=== PATIENT | male | born 1985 | race Two or more races ===

== ENCOUNTER 2017-06-01 06:58 | Emergency (ER) | payer MEDICAID ==
[~2017-06-01] VITALS: Ht 167.6 cm; Wt 96.2 kg
[~2017-06-01 06:58] MED LIST: ENOX40DI11 SQ; OMEP-50 PO; ONDA4TAB12 PO; QUET-1 PO; SOFO1TAB PO; WALKERFR
[2017-06-01] MEDS ORDERED: HYDROcodone/acetaminophen 5mg/325mg tablet PO ONE (07:50)
[2017-06-01] MEDS ORDERED: LIDOcaine 5% patch TP ONE (07:50)
[2017-06-01 08:33] LABS: CLARITY,URINE CLEAR (Clear); COLOR,URINE YELLOW (Yellow); GLUCOSE, URINE NEGATIVE (Neg); KETONES,URINE NEGATIVE (Neg); LEUKOCYTE ESTERASE ,URINE NEGATIVE (Neg); NITRITES, URINE NEGATIVE (Neg); OCCULT BLOOD,URINE NEGATIVE (Neg); PH,URINE 5.5 (4.8-8.0); PROTEIN,URINE NEGATIVE (Neg); UROBILINOGEN,URINE 0.2 E.U/dL (0.2-1.0)
[2017-06-01 08:36] LABS: UA COLLECTION TYPE URINAL
[2017-06-01] MEDS ORDERED: HYDR-3965 PO (08:41)
[2017-06-01] MEDS ORDERED: CYCL-1 PO (08:41)
[2017-06-01 08:52] VITALS: BP 133/79
== END 2017-06-01 08:54 | disposition home or self-care (01) ==
LOC: ER 06:58
DX: M54.5 Low back pain (principal); G89.29 Other chronic pain; F17.200 Nicotine dependence, unspecified, uncomplicated; J45.909 Unspecified asthma, uncomplicated; F12.10 Cannabis abuse, uncomplicated; F15.10 Other stimulant abuse, uncomplicated; F14.10 Cocaine abuse, uncomplicated; F11.10 Opioid abuse, uncomplicated; Z56.0 Unemployment, unspecified; Z98.890 Other specified postprocedural states; Z79.899 Other long term (current) drug therapy
CPT/HCPCS: 81003; 99283

== ENCOUNTER 2017-06-07 17:50 | Emergency (ER) | payer MEDICAID ==
[~2017-06-07] VITALS: Ht 170.2 cm; Wt 88.6 kg
[~2017-06-07 17:50] MED LIST changes: +CYCL-1 PO; +HYDR-3965 PO
[2017-06-07 18:00] VITALS: BP 122/84
== END 2017-06-07 18:54 | disposition home or self-care (01) ==
LOC: ER 17:51
DX: S61.210A Laceration without foreign body of right index finger without damage to nail, initial encounter (principal); J44.9 Chronic obstructive pulmonary disease, unspecified; F12.10 Cannabis abuse, uncomplicated; F15.10 Other stimulant abuse, uncomplicated; F14.10 Cocaine abuse, uncomplicated; F11.10 Opioid abuse, uncomplicated; W26.0XXA Contact with knife, initial encounter; Y93.89 Activity, other specified; Y92.89 Other specified places as the place of occurrence of the external cause; Y99.8 Other external cause status
CPT/HCPCS: 29130; 99283

== ENCOUNTER 2017-08-17 04:34 | Emergency (ER) | payer MEDICAID ==
[~2017-08-17] VITALS: Ht 167.6 cm; Wt 91.8 kg
[~2017-08-17 04:34] MED LIST changes: -HYDR-3965 PO
[2017-08-17 04:39] VITALS: BP 149/96
== END 2017-08-17 05:39 | disposition home or self-care (01) ==
LOC: ER 04:34
DX: J34.0 Abscess, furuncle and carbuncle of nose (principal); J44.9 Chronic obstructive pulmonary disease, unspecified; F12.10 Cannabis abuse, uncomplicated; F15.10 Other stimulant abuse, uncomplicated; F19.10 Other psychoactive substance abuse, uncomplicated; F14.10 Cocaine abuse, uncomplicated
CPT/HCPCS: 99281

== ENCOUNTER 2017-09-07 09:12 | Emergency (ER) | payer MEDICAID ==
[~2017-09-07] VITALS: Ht 152.4 cm; Wt 89.3 kg
[2017-09-07] MEDS ORDERED: triamcinolone acetonide 40mg/ml inj IM ONE (09:40)
[2017-09-07] MEDS ORDERED: gabapentin 400mg capsule PO ONE (09:40)
[2017-09-07] MEDS ORDERED: gabapentin 300mg capsule PO ONE (09:45)
[2017-09-07 09:55] VITALS: BP 135/89
== END 2017-09-07 09:56 | disposition home or self-care (01) ==
LOC: ER 09:13
DX: M54.5 Low back pain (principal); J44.9 Chronic obstructive pulmonary disease, unspecified; F12.10 Cannabis abuse, uncomplicated; F15.10 Other stimulant abuse, uncomplicated; F11.10 Opioid abuse, uncomplicated; F14.10 Cocaine abuse, uncomplicated; Z56.0 Unemployment, unspecified; Z98.890 Other specified postprocedural states; Z79.899 Other long term (current) drug therapy
CPT/HCPCS: 96372; 99283; J3301

== ENCOUNTER 2020-10-25 13:15 | Emergency (ER) | payer MEDICAID | END 2020-10-25 14:57 | disposition left against medical advice (07) | LOC: ER 13:16 | DX: R10.9 Unspecified abdominal pain (principal); Z53.21 Procedure and treatment not carried out due to patient leaving prior to being seen by health care provider ==

== ENCOUNTER 2022-03-25 04:46 | Emergency (ER) | payer MEDICAID ==
[~2022-03-25] VITALS: Ht 167.6 cm; Wt 92.1 kg
[~2022-03-25 04:46] MED LIST changes: -OMEP-50 PO; +OMEP20CA16 PO
--- NOTE | 2022-03-25 08:52 | NUR ---
PT IS AO4 WITHOUT BEING ASKED OR PROMPTED PT STATED "I HAVE SUICIDAL IDEATION THE VOICES IN MY HEAD WANT ME TO KILL MYSELF BY WALKING IN FRONT OF A SEMI. I ALSO FELL IN THE SNOW AND MY BUTT HURTS AND I WANT THE PAIN TO STOP." PT STATED HE FEELS SAFE AND WILL CONTRACT FOR SAFETY. RESP EVEN UNLABORED. SKIN W/D/I PINK
[2022-03-25] MEDS ORDERED: ibuprofen 200mg tablet PO ONE (09:45)
[2022-03-25] MEDS ORDERED: mirtazapine 15mg tablet PO STA (09:56)
[2022-03-25 10:02] LABS: CLARITY,URINE CLEAR (Clear); COLOR,URINE YELLOW (Yellow); GLUCOSE, URINE NEGATIVE (Neg); KETONES,URINE 40 mg/dl (Neg); LEUKOCYTE ESTERASE ,URINE NEGATIVE (Neg); NITRITES, URINE NEGATIVE (Neg); OCCULT BLOOD,URINE MODERATE (Neg); PROTEIN,URINE 30 mg/dl (Neg)
[2022-03-25 10:10] LABS: UA COLLECTION TYPE NON-SPECIFIED
[2022-03-25] MEDS ORDERED: HYDROcodone/acetaminophen 5mg/325mg tablet PO ONE (10:30)
[2022-03-25 10:33] LABS: URINE AMPHETAMINE SCREEN NEGATIVE (Neg); URINE BARBITUATE SCREEN NEGATIVE (Neg); URINE BENZODIAZEPINES SCREEN NEGATIVE (Neg); URINE CANNABINOID SCREEN NEGATIVE (Neg); URINE COCAINE SCREEN NEGATIVE (Neg); URINE METHADONE SCREEN NEGATIVE (Neg); URINE OPIATE SCREEN NEGATIVE (Neg); URINE PHENCYCLIDINE SCREEN NEGATIVE (Neg)
[2022-03-25 10:44] LABS: WBC,URINE 0-4 /HPF (0-4)
[2022-03-25 10:48] LABS: HYALINE CASTS 0-3 /LPF (NEGATIVE)
[2022-03-25 10:49] LABS: BACTERIA,URINE FEW /HPF (Neg); SQUAMOUS EPITHELIAL CELL,UR FEW /LPF (FEW)
[2022-03-25 10:50] LABS: MUCUS STRANDS FEW /LPF (Neg)
[2022-03-25 11:03] LABS: BASOPHILS # (AUTO) 0.1 X10'3 (0-0.2); BASOPHILS % (AUTO) 0.6 % (0-1); EOSINOPHILS % (AUTO) 0.2 % (0-6); HEMATOCRIT 38.2 % (42.0-52.0); LYMPHOCYTES # (AUTO) 1.9 X10'3 (1.1-4.8); LYMPHOCYTES % (AUTO) 19.8 % (21-51); MEAN CORPUSCULAR HEMOGLOBIN 30.6 PG (27.0-31.0); MEAN CORPUSCULAR VOLUME 89.9 FL (78-98); MEAN PLATELET VOLUME 8.6 FL (7.4-10.4); MONOCYTES # (AUTO) 0.7 X10'3 (0-0.9); MONOCYTES % (AUTO) 6.8 % (2-12); NEUTROPHILS # (AUTO) 7.2 X10'3 (1.8-7.7); NEUTROPHILS % (AUTO) 72.6 % (42-75); PLATELET COUNT 187 X10'3 (140-440); RED BLOOD COUNT 4.25 X10'6 (4.70-6.10); RED CELL DISTRIBUTION WIDTH 13.8 % (11.5-14.5); WHITE BLOOD COUNT 9.8 X10'3 (4.5-11.0)
[2022-03-25] MEDS ORDERED: albuterol 2.5 MG/3 ML nebule NEB ONE (11:30)
[2022-03-25 11:32] LABS: ALANINE AMINOTRANSFERASE 204 U/L (12-78); ALBUMIN 2.9 G/DL (3.4-5.0); ALBUMIN/GLOBULIN RATIO 0.9 (1.1-1.5); ALKALINE PHOSPHATASE 48 IU/L (46-116); ASPARTATE AMINO TRANSFERASE 477 U/L (10-37); BILIRUBIN,TOTAL 0.9 MG/DL (0.1-1.0); BLOOD UREA NITROGEN 15 MG/DL (7-18); BUN/CREATININE RATIO 19.7 (5.4-32.0); CALCIUM 7.8 MG/DL (8.5-10.1); CREATININE 0.76 MG/DL (0.60-1.10); GLUCOSE 108 MG/DL (70-104); TOTAL CARBON DIOXIDE 21.5 MMOL/L (24-32); TOTAL PROTEIN 6.1 G/DL (6.4-8.2); eGFR > 90 ML/MIN
--- NOTE | 2022-03-25 11:32 | NUR ---
pt remains calm cooperative. pt changed into green scubs and all belongings placed in bags. pt medicated per pain order. pt ambulatory with steady gait
--- NOTE | 2022-03-25 12:10 | NUR ---
Assumed care of patient from CHRIS Saravia. Pt ambulated independently from main ED to OF bed #20. Pt is A&Ox4. Pt's gait is slightly impaired r/t a fx pelvis. Pt was given a warm blanket and lunch tray.
[2022-03-25] MEDS ORDERED: normal saline 1000ML IV soln IVB ONE (12:25)
[2022-03-25 13:20] LABS: SODIUM 138 MMOL/L (135-145)
[2022-03-25 13:23] LABS: ANION GAP 15 (8-16); CHLORIDE 102 MMOL/L (99-107)
--- NOTE | 2022-03-25 13:30 | NUR ---
Came back from lunch, received notice pt's K+ was 3.0. An order for 20meq's was placed. Administered with out issue. Pt remains calm.
[2022-03-25] MEDS ORDERED: POTASSIUM BICARB 20meq eff tab 20 MEQ TABLET.EFF PO STA (13:41)
--- NOTE | 2022-03-25 14:20 | NUR ---
PACKET FAXED TO [facility].
--- NOTE | 2022-03-25 14:25 | NUR ---
Patient was lying on bed when writer technical publications approached. Pt states he came in because his "butt hurt." Pt reports he fell in the snow "helping a lady." Pt reports passive suicidal thoughts, pt is guarded during conversation. Pt states he "takes care of his mother and is having "some difficulties." Pt reports he has been dx with "bipolar, schizophrenia, ADHD." Pt states his "butt is fractured."
--- NOTE | 2022-03-25 16:32 | NUR ---
Sister Marlyn called to check in on pt., her phone number is [phone].
--- NOTE | 2022-03-25 16:52 | NUR ---
Pt lying in bed on his right side. Pt was asking about pain mediation that isn't due yet. Pt declined Tylenol or Motrin.
[2022-03-25] MEDS: HYDROcodone/acetaminophen 5mg/325mg tablet PO PRN (17:09)
--- NOTE | 2022-03-25 17:30 | NUR ---
Note caroline in EDM - 03/25/22 at 1835 by DEEJAY Patient's blood pressure was 225/102 automatic cuff and 220/100 manual. Rima Khan notified ordered PO Lopressor 50 mg. Pt refused medication from auto service writer even after risks and benefits were explained. Will endorse to awake overnight counselor.
--- NOTE | 2022-03-25 19:07 | NUR ---
One to one with the patient who reports that he is here because he is suicidal. He reports command auditory hallucinations telling him to kill himself. He reports he has not been sleeping well. He described his mood as "low. I'm in so much pain" Reports his pain is 10/10 despite receiving pain meds. He reports he is homeless and added, "I have no where to go"
--- NOTE | 2022-03-25 19:09 | NUR ---
Raman COLEMAN made aware of pain level complaint and orders received.
[2022-03-25] MEDS: ibuprofen 200mg tablet PO PRN (19:26)
--- NOTE | 2022-03-25 20:29 | NUR ---
Discussed Remeron dosing for the patient with Erin COLEMAN and orders received.
[2022-03-25] MEDS: mirtazapine 15mg tablet PO SCH (20:34)
[2022-03-25] MEDS ORDERED: NO HOME MEDS (20:46)
--- NOTE | 2022-03-25 21:33 | NUR ---
The patient ambulated to the bathroom and is now back in bed.
--- NOTE | 2022-03-25 23:38 | NUR ---
The patient appears to be sleeping
[2022-03-26] MEDS: HYDROcodone/acetaminophen 5mg/325mg tablet PO PRN ×3 (01:21→17:06)
[2022-03-26] MEDS: ibuprofen 200mg tablet PO PRN ×2 (01:21→20:04)
--- NOTE | 2022-03-26 01:24 | NUR ---
The patient is awake. Reports pain 8/10 and medications given.
--- NOTE | 2022-03-26 03:09 | NUR ---
The patient is sleeping off and on. He is polite when awake
--- NOTE | 2022-03-26 05:12 | NUR ---
The patient appears to be sleeping but over all slept poorly
--- NOTE | 2022-03-26 07:00 | NUR ---
Pt appears to be sleeping comfortably on right side, respirations even and unlabored. No restless movements.
--- NOTE | 2022-03-26 09:00 | NUR ---
One on one with patient to assess suicidal ideation. Pt was sleeping and had to be woken up. Pt c/o pain 6/10 in his buttocks. Pt ambulates with a mild limp to bathroom, but appears to over exaggerate steps. Pt ate 100% of his breakfast. Pt presents with a restricted affect. Pt continues to endorse suicidal thoughts without a plan. Pt denies AH. Pt is guarded and responds to questions with short answers. When asked about recent stressors, pt replied "I have alot," but wouldn't elaborate. Pt denied having diarrhea, but clearly heard through bathroom door pt is having loose stool. Will endorse to provider.
--- NOTE | 2022-03-26 10:25 | NUR ---
Administered [place] 5/325mg for buttocks pain 09/20.
--- NOTE | 2022-03-26 11:06 | NUR ---
Pt lying on left side, respirations even and unlabored. No restless movements. PRN effective.
--- NOTE | 2022-03-26 14:00 | NUR ---
Pt continues to rest comfortably in bed. No behaviors to report. Pt calm/cooperative.
--- NOTE | 2022-03-26 19:00 | NUR ---
One to one with the patient who continues to endorse feeling depressed and suicidal. He is superficially pleasant but can be irritable at times. He denies voices. He reports he was discharged from detention on the 6th of this month. He denies any source of income or support in the area.
[2022-03-26] MEDS: mirtazapine 15mg tablet PO SCH (20:04)
--- NOTE | 2022-03-26 20:11 | NUR ---
The patient is resting on his bed. He is asking when his norco was due. Motrin given.
[2022-03-26] MEDS ORDERED: mirtazapine 15mg tablet PO SCH (21:00)
--- NOTE | 2022-03-26 21:58 | NUR ---
The patient appears to be sleeping
--- NOTE | 2022-03-27 00:03 | NUR ---
The patient appears to be sleeping
[2022-03-27] MEDS: HYDROcodone/acetaminophen 5mg/325mg tablet PO PRN ×4 (00:44→22:18)
--- NOTE | 2022-03-27 02:03 | NUR ---
The patient was awake briefly to ask for [employer] and now appears to be back asleep
--- NOTE | 2022-03-27 04:05 | NUR ---
The patient appears to be sleeping.
--- NOTE | 2022-03-27 05:42 | NUR ---
The patient appeared to have slept well during the night.
[2022-03-27] MEDS: ibuprofen 200mg tablet PO PRN ×3 (06:00→21:37)
--- NOTE | 2022-03-27 06:38 | NUR ---
PT SLEEPING IN LFT LATERAL POSITION AT THIS TIME,WILL CONT TO MONITOR.
--- NOTE | 2022-03-27 08:30 | NUR ---
pt is eating his breakfast at talia time.
--- NOTE | 2022-03-27 09:21 | NUR ---
pt c/o pain in lower back and buttocks 01/20 ,norco prn admin at this time.will re eval the pt .
--- NOTE | 2022-03-27 10:05 | NUR ---
Sreedhar velazquez in [facility] - 03/27/22 at 1133 by AIDAN LE BELLO AT BEDSIDE.
--- NOTE | 2022-03-27 10:55 | NUR ---
pt sleeping at this time RR wnl ,will cont to monitor.
--- NOTE | 2022-03-27 12:30 | NUR ---
SPOKE TO DC AT [facility] FOR MH PLACEMENT ,GIVEN NURSE TO NURSE REPORT.
--- NOTE | 2022-03-27 14:14 | NUR ---
pt resting in bed quietly .No distress noted ,will cont to monitor.
--- NOTE | 2022-03-27 14:35 | NUR ---
Spoke to Lay from [facility] ,pt is accepted to the facility ,only thing pending is negative covid result within last 24 hr.fax result at [phone],after faxing the results call primary RN to give nurse to nurse report at [phone].
--- NOTE | 2022-03-27 14:41 | NUR ---
UP TO USE RESTROOM AT THIS TIME.
--- NOTE | 2022-03-27 17:10 | NUR ---
PT SLEEPING AT THIS TIME .RR WNL.
--- NOTE | 2022-03-27 17:21 | NUR ---
RECEVIED CALL FROM [facility] OFFICE ,PT ACCEPTED TO [facility] AT [address] ,PT WILL BE TRANSPORTED TOMM MORNING ,GIVE NURSE TO NURSE REPPORT IN AM AT [phone].
[2022-03-27] MEDS: mirtazapine 15mg tablet PO SCH (19:53)
--- NOTE | 2022-03-27 22:20 | NUR ---
PT BEEN WAITING FOR NORCO FOR HOURS ,ADMIN THE NORCO PER MD'S ORDERS,WILL REASSESS THE PAIN .
--- NOTE | 2022-03-27 23:16 | NUR ---
PT RESTING IN BED QUIETLY ,NO DISTRESS NOTED ,WILL CONT TO MONITOR.
--- NOTE | 2022-03-28 01:10 | NUR ---
PT SLEEPING AT THIS TIME .RR WNL.WILL CONT TO MONITOR.
--- NOTE | 2022-03-28 02:26 | NUR ---
SLEEPING QUIETLY,NO DISTRESS NOTED,WILL CONT TO MONITOR.
--- NOTE | 2022-03-28 02:47 | NUR ---
BREAKING PRIMARY RN, PT IS LAYING ON HIS LEFT SIDE, SLEEPING, REGULAR BREATHING PRESENT, NO NEEDS AT THIS TIME
--- NOTE | 2022-03-28 03:46 | NUR ---
SLEEPING ON HIS RGT SIDE ,RR WNL.
[2022-03-28] MEDS: ibuprofen 200mg tablet PO PRN (05:43)
--- NOTE | 2022-03-28 05:45 | NUR ---
PT C/O PAIN PRN MOTRIN ADMINISTERED .
[2022-03-28 05:47] VITALS: BP 94/50
[2022-03-28] MEDS: HYDROcodone/acetaminophen 5mg/325mg tablet PO PRN (07:17)
== END 2022-03-28 11:25 ==
LOC: ER 04:47
DX: R45.851 Suicidal ideations (principal); Z20.822 Contact with and (suspected) exposure to COVID-19
CPT/HCPCS: 36415; 71045; 72170; 72220; 80053; 80305; 81001; 84443; 85025; 87811; 94640; 94760; 99285

== ENCOUNTER 2022-04-03 23:21 | Emergency (ER) | payer MEDICAID ==
[~2022-04-03] VITALS: Ht 167.6 cm; Wt 81.8 kg
[~2022-04-03 23:21] MED LIST changes: -CYCL-1 PO; -ENOX40DI11 SQ; +NO HOME MEDS; -OMEP20CA16 PO; -ONDA4TAB12 PO; -QUET-1 PO; -SOFO1TAB PO; -WALKERFR
[2022-04-04 00:33] LABS: CLARITY,URINE CLEAR (Clear); COLOR,URINE YELLOW (Yellow); GLUCOSE, URINE NEGATIVE (Neg); KETONES,URINE NEGATIVE (Neg); LEUKOCYTE ESTERASE ,URINE NEGATIVE (Neg); NITRITES, URINE NEGATIVE (Neg); OCCULT BLOOD,URINE NEGATIVE (Neg); PH,URINE 5.5 (4.8-8.0); PROTEIN,URINE NEGATIVE (Neg); UROBILINOGEN,URINE 0.2 E.U/dL (0.2-1.0)
[2022-04-04 00:38] LABS: BASOPHILS % (AUTO) 0.3 % (0-1); EOSINOPHILS # (AUTO) 0.1 X10'3 (0-0.9); EOSINOPHILS % (AUTO) 1.2 % (0-6); HEMATOCRIT 42.3 % (42.0-52.0); HEMOGLOBIN 14.7 g/dl (14.0-17.9); LYMPHOCYTES # (AUTO) 1.9 X10'3 (1.1-4.8); LYMPHOCYTES % (AUTO) 20.8 % (21-51); MEAN CORPUSCULAR HEMOGLOBIN 31.3 PG (27.0-31.0); MEAN CORPUSCULAR HGB CONC 34.8 g/dL (33.0-36.5); MEAN PLATELET VOLUME 8.7 FL (7.4-10.4); MONOCYTES # (AUTO) 1.1 X10'3 (0-0.9); NEUTROPHILS % (AUTO) 65.7 % (42-75); PLATELET COUNT 219 X10'3 (140-440); RED CELL DISTRIBUTION WIDTH 14.4 % (11.5-14.5); WHITE BLOOD COUNT 9.1 X10'3 (4.5-11.0)
[2022-04-04 00:40] LABS: UA COLLECTION TYPE VOIDED
[2022-04-04 00:42] LABS: URINE AMPHETAMINE SCREEN NEGATIVE (Neg); URINE BARBITUATE SCREEN NEGATIVE (Neg); URINE BENZODIAZEPINES SCREEN NEGATIVE (Neg); URINE CANNABINOID SCREEN POSITIVE (Neg); URINE COCAINE SCREEN NEGATIVE (Neg); URINE METHADONE SCREEN NEGATIVE (Neg); URINE OPIATE SCREEN POSITIVE (Neg); URINE PHENCYCLIDINE SCREEN NEGATIVE (Neg)
[2022-04-04 00:48] LABS: ALANINE AMINOTRANSFERASE 127 U/L (12-78); ALBUMIN 4.2 G/DL (3.4-5.0); ALBUMIN/GLOBULIN RATIO 1.1 (1.1-1.5); ALKALINE PHOSPHATASE 60 IU/L (46-116); ANION GAP 13 (8-16); ASPARTATE AMINO TRANSFERASE 61 U/L (10-37); BILIRUBIN,TOTAL 0.3 MG/DL (0.1-1.0); BLOOD UREA NITROGEN 17 MG/DL (7-18); BUN/CREATININE RATIO 15.2 (5.4-32.0); CHLORIDE 101 MMOL/L (99-107); CREATININE 1.12 MG/DL (0.60-1.10); ETHANOL < 0.010 GM/DL (0.0-0.010); GLUCOSE 110 MG/DL (70-104); POTASSIUM 3.8 MMOL/L (3.5-5.1); SODIUM 140 MMOL/L (135-145); TOTAL CARBON DIOXIDE 26.1 MMOL/L (24-32); TOTAL PROTEIN 7.9 G/DL (6.4-8.2); eGFR 73 ML/MIN
--- NOTE | 2022-04-04 02:27 | NUR ---
Patient received from main ED. Patient is cooperative. Patient reports active plan to harm self by hanging. Patient reports psych hx: schizophrenia, bipolar, major depressive, ADHD, paranoid, depression. Patient has HX of suicide attempts, O/D, cutting. Patient would like to get better so he can move to [place], [place] by April 14 with 2month and 1yr old daughters and girlfriend.
--- NOTE | 2022-04-04 04:26 | NUR ---
Patient appears to be sleeping at this time.
--- NOTE | 2022-04-04 05:45 | NUR ---
packet sent to [facility]
--- NOTE | 2022-04-04 06:50 | NUR ---
Patient sleeping in bed, respirations are unlabored.
--- NOTE | 2022-04-04 09:04 | NUR ---
Patient ate his breakfast, up to the bathroom, then back to bed.
--- NOTE | 2022-04-04 10:27 | NUR ---
patient on side lying position,awake.We will monitor.
--- NOTE | 2022-04-04 11:44 | NUR ---
Patient evaluated by [facility]. Patient will be placed on 5150.
--- NOTE | 2022-04-04 12:19 | NUR ---
Patient ate lunch and now in restroom.
[2022-04-04] MEDS ORDERED: FLUO20CA39 PO (12:31)
[2022-04-04] MEDS ORDERED: QUET-1 PO (12:31)
[2022-04-04] MEDS ORDERED: LORazepam 1 MG tablet PO PRN (13:00)
--- NOTE | 2022-04-04 14:32 | NUR ---
Patient was given Ativan 1 mg p.o. and is now resting comfortably in bed.
--- NOTE | 2022-04-04 16:55 | NUR ---
[facility] and [facility] patient will be going to [facility] at approximately 20:00.
--- NOTE | 2022-04-04 18:30 | NUR ---
Patient is sleeping quietly, in bed, in direct view from nurses station
--- NOTE | 2022-04-04 19:10 | NUR ---
Patient is up to bathroom to void. No distress. He has eaten a full dinner. Patient will transfer to [facility] sometime after 2000 hours. Patient endorses S/I, he denies H/I. Patient has a plan of hanging self. Patient ambulates with a normal gait. He speaks with a regular rhythm, his voice is quiet. Patient is cooperative and presents as linear.
--- NOTE | 2022-04-04 20:48 | NUR ---
Patient was to be transfered to [facility] in [place]. The transfer is now cancelled until am around [id number]. No local intermodal truck driver is available tonight.
[2022-04-04] MEDS ORDERED: quetiapine 100mg tablet PO SCH (21:00)
--- NOTE | 2022-04-04 22:01 | NUR ---
Patient is sleeping quietly, no distress.
--- NOTE | 2022-04-04 23:00 | NUR ---
Patient noted asleep, resting on left side. Appears to be comfortable. No distress noted.
--- NOTE | 2022-04-05 | NUR ---
Patient resting with eyes closed, resting on back. No distress noted.
--- NOTE | 2022-04-05 00:57 | NUR ---
Patient continues to sleep, no changes.
--- NOTE | 2022-04-05 02:30 | NUR ---
No changes noted, patient sleeping comfortably. Resting on left side. Able to make needs known. Within line of site from nurses station.
--- NOTE | 2022-04-05 04:00 | NUR ---
Noted patient up to BR appearing as if he's "walking on egg shells". Made nurse aware of this during physical assessment. Will pass on in report to dayshift. Layed back down and went to sleep again quickly. Appears comfortable and without distress.
--- NOTE | 2022-04-05 05:28 | NUR ---
Patient resting well on right side, has slept most of night. Awoke to use BR once. No needs noted. Appears to be comfortable. No distress noted.
[2022-04-05 05:45] VITALS: BP 96/58
[2022-04-05] MEDS ORDERED: FLUoxetine 20mg capsule PO SCH (08:00)
--- NOTE | 2022-04-05 10:25 | NUR ---
pt clothes given to pt to change into, the rest of the pt's belongings were given to the company truck driver. No belongings were locked in the safe.
== END 2022-04-05 10:28 ==
LOC: ER 23:21
DX: R45.851 Suicidal ideations (principal); Z20.822 Contact with and (suspected) exposure to COVID-19; J44.9 Chronic obstructive pulmonary disease, unspecified; F31.9 Bipolar disorder, unspecified; F20.9 Schizophrenia, unspecified; F12.90 Cannabis use, unspecified, uncomplicated; F15.90 Other stimulant use, unspecified, uncomplicated; F14.90 Cocaine use, unspecified, uncomplicated; F11.90 Opioid use, unspecified, uncomplicated; Z98.890 Other specified postprocedural states; Z72.89 Other problems related to lifestyle; Z56.0 Unemployment, unspecified; Z79.899 Other long term (current) drug therapy
CPT/HCPCS: 36415; 80053; 80305; 80320; 81003; 85025; 87811; 99285

== ENCOUNTER 2022-04-19 06:47 | Emergency (ER) | payer MEDICAID ==
[~2022-04-19] VITALS: Ht 167.6 cm; Wt 88.6 kg
[~2022-04-19 06:47] MED LIST changes: +FLUO20CA39 PO; +QUET-1 PO
[2022-04-19 07:35] VITALS: BP 108/72
[2022-04-19] MEDS ORDERED: ARIP20TA21 PO (09:26)
[2022-04-19] MEDS ORDERED: HYDR50CA5 PO (09:26)
[2022-04-19] MEDS ORDERED: PROP10TA10 PO (09:26)
[2022-04-19] MEDS ORDERED: GUAN1TAB PO (09:26)
[2022-04-19 09:56] LABS: CLARITY,URINE CLEAR (Clear); COLOR,URINE YELLOW (Yellow); GLUCOSE, URINE NEGATIVE (Neg); KETONES,URINE NEGATIVE (Neg); LEUKOCYTE ESTERASE ,URINE NEGATIVE (Neg); NITRITES, URINE NEGATIVE (Neg); OCCULT BLOOD,URINE NEGATIVE (Neg); PH,URINE 5.5 (4.8-8.0); PROTEIN,URINE NEGATIVE (Neg); UROBILINOGEN,URINE 0.2 E.U/dL (0.2-1.0)
[2022-04-19 10:00] LABS: BASOPHILS % (AUTO) 0.3 % (0-1); EOSINOPHILS # (AUTO) 0.4 X10'3 (0-0.9); EOSINOPHILS % (AUTO) 3.9 % (0-6); HEMATOCRIT 43.5 % (42.0-52.0); HEMOGLOBIN 14.6 g/dl (14.0-17.9); LYMPHOCYTES # (AUTO) 1.6 X10'3 (1.1-4.8); LYMPHOCYTES % (AUTO) 17.8 % (21-51); MEAN CORPUSCULAR HEMOGLOBIN 30.2 PG (27.0-31.0); MEAN CORPUSCULAR HGB CONC 33.5 g/dL (33.0-36.5); MEAN CORPUSCULAR VOLUME 90.2 FL (78-98); MEAN PLATELET VOLUME 8.6 FL (7.4-10.4); MONOCYTES # (AUTO) 0.8 X10'3 (0-0.9); MONOCYTES % (AUTO) 9.2 % (2-12); NEUTROPHILS # (AUTO) 6.1 X10'3 (1.8-7.7); NEUTROPHILS % (AUTO) 68.8 % (42-75); PLATELET COUNT 234 X10'3 (140-440); RED BLOOD COUNT 4.82 X10'6 (4.70-6.10); WHITE BLOOD COUNT 8.9 X10'3 (4.5-11.0)
[2022-04-19 10:05] LABS: UA COLLECTION TYPE CLN CATCH MIDSTREAM
[2022-04-19] MEDS ORDERED: hydrOXYzine 25 MG tablet PO PRN (10:05)
[2022-04-19 10:08] LABS: URINE AMPHETAMINE SCREEN NEGATIVE (Neg); URINE BARBITUATE SCREEN NEGATIVE (Neg); URINE BENZODIAZEPINES SCREEN NEGATIVE (Neg); URINE CANNABINOID SCREEN POSITIVE (Neg); URINE COCAINE SCREEN NEGATIVE (Neg); URINE METHADONE SCREEN NEGATIVE (Neg); URINE OPIATE SCREEN NEGATIVE (Neg); URINE PHENCYCLIDINE SCREEN NEGATIVE (Neg)
[2022-04-19 10:20] LABS: ALANINE AMINOTRANSFERASE 111 U/L (12-78); ALBUMIN 4.2 G/DL (3.4-5.0); ALBUMIN/GLOBULIN RATIO 1.3 (1.1-1.5); ALKALINE PHOSPHATASE 72 IU/L (46-116); ANION GAP 10 (8-16); ASPARTATE AMINO TRANSFERASE 51 U/L (10-37); BILIRUBIN,TOTAL 0.9 MG/DL (0.1-1.0); BLOOD UREA NITROGEN 14 MG/DL (7-18); BUN/CREATININE RATIO 13.2 (5.4-32.0); CALCIUM 9.5 MG/DL (8.5-10.1); CHLORIDE 103 MMOL/L (99-107); CREATININE 1.06 MG/DL (0.60-1.10); GLUCOSE 103 MG/DL (70-104); POTASSIUM 3.9 MMOL/L (3.5-5.1); SODIUM 139 MMOL/L (135-145); TOTAL CARBON DIOXIDE 26.3 MMOL/L (24-32); TOTAL PROTEIN 7.4 G/DL (6.4-8.2); eGFR 78 ML/MIN
[2022-04-19] MEDS ORDERED: propranolol 10mg tablet PO SCH (13:00)
--- NOTE | 2022-04-19 15:28 | NUR ---
PACKET FAXED TO [facility]
--- NOTE | 2022-04-19 18:25 | NUR ---
CALLED [facility]. PT IS ACCEPTED. INSTRUCTIONS ARE FOLLOWS: HAVE THE CAB DROP THE PT OFF AT THE BLUE DOORS. SIGN IN STARTS AT 1900. WILL RELAY THIS TO THE PT. Addendum: 04/19/22 at 1827 by ADUVAL CALLED [facility], AND SPOKE WITH COOPER MATIAS AT 182. PT IS ACCEPTED. INSTRUCTIONS ARE FOLLOWS: HAVE THE CAB DROP THE PT OFF AT THE BLUE DOORS. SIGN IN STARTS AT 1900. WILL RELAY THIS TO THE PT.
[2022-04-19] MEDS ORDERED: guanFACINE 1 mg tablet PO SCH (20:00)
[2022-04-20] MEDS ORDERED: ARIPIPRAZOLE 10 MG TABLET PO SCH (08:00)
== END 2022-04-19 11:41 ==
LOC: ER 06:47
DX: R45.851 Suicidal ideations (principal); Z20.822 Contact with and (suspected) exposure to COVID-19; J44.9 Chronic obstructive pulmonary disease, unspecified; F31.9 Bipolar disorder, unspecified; F20.9 Schizophrenia, unspecified; F12.10 Cannabis abuse, uncomplicated; F15.10 Other stimulant abuse, uncomplicated; Z56.0 Unemployment, unspecified
CPT/HCPCS: 36415; 80053; 80305; 81003; 84443; 85025; 87811; 99285

== ENCOUNTER 2022-04-20 07:14 | Emergency (ER) | payer MEDICAID ==
[~2022-04-20] VITALS: Ht 167.6 cm; Wt 88.0 kg
[~2022-04-20 07:14] MED LIST changes: +ARIP20TA21 PO; +GUAN1TAB PO; +HYDR50CA5 PO; +PROP10TA10 PO
[2022-04-20 07:17] VITALS: BP 116/79
== END 2022-04-20 10:28 | disposition left against medical advice (07) ==
LOC: ER 07:14
DX: Z53.21 Procedure and treatment not carried out due to patient leaving prior to being seen by health care provider (principal); F29 Unspecified psychosis not due to a substance or known physiological condition

== ENCOUNTER 2022-04-20 13:37 | Emergency (ER) | payer MEDICAID ==
[~2022-04-20] VITALS: Ht 167.6 cm; Wt 85.0 kg
[2022-04-20 13:46] VITALS: BP 114/78
--- NOTE | 2022-04-20 13:51 | NUR ---
PT IS CURRENTLY STAYING [facility], HE STATES ALL HIS MED ARE THERE
== END 2022-04-20 20:09 | disposition left against medical advice (07) ==
LOC: ER 13:37
DX: F29 Unspecified psychosis not due to a substance or known physiological condition (principal); Z53.21 Procedure and treatment not carried out due to patient leaving prior to being seen by health care provider

== ENCOUNTER 2022-04-25 10:06 | Emergency (ER) | payer MEDICAID ==
[~2022-04-25] VITALS: Ht 167.6 cm; Wt 85.0 kg
[~2022-04-25 10:06] MED LIST changes: -FLUO20CA39 PO; -NO HOME MEDS; -QUET-1 PO
[2022-04-25 10:16] VITALS: BP 134/73
[2022-04-25] MEDS ORDERED: ibuprofen tablet 400 MG TABLET PO ONE (10:55)
[2022-04-25] MEDS ORDERED: gabapentin 100mg capsule PO ONE (10:55)
[2022-04-25] MEDS ORDERED: IBUP-1986 PO (11:46)
[2022-04-25] MEDS ORDERED: GABA-530 PO (11:46)
[2022-04-27] MEDS ORDERED: GUAI600T45 PO (11:15)
[2022-04-27] MEDS ORDERED: ALBU8HFA PO (11:15)
== END 2022-04-25 11:57 | disposition home or self-care (01) ==
LOC: ER 10:07
DX: R20.2 Paresthesia of skin (principal); J44.9 Chronic obstructive pulmonary disease, unspecified; F31.9 Bipolar disorder, unspecified; F20.9 Schizophrenia, unspecified; F12.10 Cannabis abuse, uncomplicated; F15.10 Other stimulant abuse, uncomplicated; Z56.0 Unemployment, unspecified; Z79.899 Other long term (current) drug therapy; W19.XXXA Unspecified fall, initial encounter; Y93.89 Activity, other specified; Y92.89 Other specified places as the place of occurrence of the external cause; Y99.8 Other external cause status
CPT/HCPCS: 72131; 99284

== ENCOUNTER 2023-02-01 16:32 | Inpatient (IN) | payer MEDICAID ==
[~2023-02-01] VITALS: Ht 167.6 cm; Wt 81.8 kg
[~2023-02-01 16:32] MED LIST changes: +GABA-530 PO; +GUAI600T45 PO; +IBUP-1986 PO
[2023-02-01 17:38] LABS: BASOPHILS % (AUTO) 0.2 % (0-1); EOSINOPHILS # (AUTO) 0.3 X10'3 (0-0.9); EOSINOPHILS % (AUTO) 2.8 % (0-6); HEMATOCRIT 49.8 % (42.0-52.0); HEMOGLOBIN 17.3 g/dl (14.0-17.9); LYMPHOCYTES # (AUTO) 2.7 X10'3 (1.1-4.8); LYMPHOCYTES % (AUTO) 24.5 % (21-51); MEAN CORPUSCULAR HEMOGLOBIN 32.4 PG (27.0-31.0); MEAN CORPUSCULAR HGB CONC 34.8 g/dL (33.0-36.5); MEAN CORPUSCULAR VOLUME 93.1 FL (78-98); MEAN PLATELET VOLUME 9.8 FL (7.4-10.4); MONOCYTES # (AUTO) 0.7 X10'3 (0-0.9); MONOCYTES % (AUTO) 6.2 % (2-12); NEUTROPHILS # (AUTO) 7.5 X10'3 (1.8-7.7); NEUTROPHILS % (AUTO) 66.3 % (42-75); PLATELET COUNT 272 X10'3 (140-440); RED BLOOD COUNT 5.34 X10'6 (4.70-6.10); RED CELL DISTRIBUTION WIDTH 14.7 % (11.5-14.5); WHITE BLOOD COUNT 11.2 X10'3 (4.5-11.0)
[2023-02-01 17:38] LABS: BILIRUBIN,URINE NEGATIVE (Neg); CLARITY,URINE CLEAR (Clear); COLOR,URINE STRAW (Yellow); GLUCOSE, URINE NEGATIVE (Neg); KETONES,URINE NEGATIVE (Neg); LEUKOCYTE ESTERASE ,URINE NEGATIVE (Neg); NITRITES, URINE NEGATIVE (Neg); OCCULT BLOOD,URINE NEGATIVE (Neg); PH,URINE 6.5 (4.8-8.0); PROTEIN,URINE NEGATIVE (Neg); UROBILINOGEN,URINE 0.2 E.U/dL (0.2-1.0)
[2023-02-01 17:39] LABS: UA COLLECTION TYPE CLN CATCH MIDSTREAM
[2023-02-01 17:50] LABS: ALANINE AMINOTRANSFERASE 154 U/L (12-78); ALBUMIN 4.2 G/DL (3.4-5.0); ALKALINE PHOSPHATASE 122 IU/L (46-116); ANION GAP 13 (8-16); ASPARTATE AMINO TRANSFERASE 87 U/L (10-37); BILIRUBIN,TOTAL 1.4 MG/DL (0.1-1.0); BLOOD UREA NITROGEN 5 MG/DL (7-18); BUN/CREATININE RATIO 5.1 (10.0-20.0); CALCIUM 9.4 MG/DL (8.5-10.1); CHLORIDE 95 MMOL/L (99-107); CREATININE 0.98 MG/DL (0.60-1.10); GLUCOSE 101 MG/DL (70-104); SODIUM 138 MMOL/L (135-145); TOTAL CARBON DIOXIDE 30.1 MMOL/L (24-32); TOTAL PROTEIN 8.3 G/DL (6.4-8.2); eCRCL 90 ML/MIN; eGFR 85 ML/MIN
[2023-02-01 17:52] LABS: LIPASE 40 U/L (16-77)
[2023-02-01 17:59] LABS: POTASSIUM 2.2 MMOL/L (3.5-5.1)
[2023-02-01] MEDS ORDERED: normal saline 1000ml 1,000 ML IV ONE (19:15)
[2023-02-01] MEDS ORDERED: Potassium Cl inj 40 MEQ in normal saline 250ml IV soln 250 ML IV ONE (19:15)
[2023-02-01] MEDS ORDERED: morphine 4 MG/ML inj SYRINge IV ONE ×3 (19:15→21:40)
[2023-02-01] MEDS ORDERED: ondansetron/PF 4mg/2ml inj IV ONE ×3 (19:15→21:40)
[2023-02-01] MEDS ORDERED: piperacillin/tazo 4.5gm/100ml 100 ML IV ONE (19:16)
[2023-02-01] MEDS ORDERED: Potassium Cl 40 MEQ in sodium chloride 0.45% 500 ML IV ONE (19:20)
[2023-02-01] MEDS: POTASSIUM BICARB 20meq eff tab 20 MEQ TABLET.EFF PO SCH (19:27)
[2023-02-01 19:28] LABS: PRO BRAIN NATRIURETIC PEPTIDE < 30 PG/ML (0-125)
[2023-02-01] MEDS ORDERED: temazepam 15mg capsule PO PRN (21:00)
[2023-02-01] MEDS ORDERED: SERT-434 PO (22:03)
[2023-02-01] MEDS ORDERED: QUET400T54 PO (22:03)
[2023-02-01] MEDS ORDERED: potassium Cl 20 mEq SR tablet PO PRN ×2 (22:10)
[2023-02-01] MEDS ORDERED: HYDROmorphone inj. 0.5 MG/0.5 ML DISP.SYRIN IV PRN (22:10)
[2023-02-01] MEDS ORDERED: mag hydrox/Alum hydrox/simeth 30ml oral suspension PO PRN (22:10)
[2023-02-01] MEDS ORDERED: potassium Cl 40MEQ/1/2NS 520ml 520 ML IV PRN (22:10)
[2023-02-01] MEDS: potassium Cl 20mEq in NS 1,000 ML IV SCH (22:10)
[2023-02-01] MEDS ORDERED: ondansetron 4mg rapidly disintigrating tab PO PRN (22:10)
[2023-02-01] MEDS ORDERED: acetaminophen 650mg rectal suppository RC PRN (22:10)
[2023-02-01] MEDS ORDERED: bisacodyl 10mg suppository rectal RC PRN (22:10)
[2023-02-01] MEDS ORDERED: HYDROcodone/acetaminophen 5mg/325mg tablet PO PRN (22:10)
[2023-02-01] MEDS ORDERED: metoclopramide 5 mg/ml inj IV PRN (22:10)
[2023-02-01] MEDS ORDERED: acetaminophen 325mg tablet PO PRN ×2 (22:10)
[2023-02-01] MEDS ORDERED: diphenhydrAMINE 25mg capsule PO PRN (22:10)
[2023-02-01] MEDS ORDERED: morphine 2 MG/ML inj. syringe IV PRN (22:10)
[2023-02-01] MEDS ORDERED: magnesium hydroxide 30ml (MOM) UD suspension PO PRN (22:10)
[2023-02-01] MEDS ORDERED: diphenhydrAMINE 50 mg/ml inj IV PRN (22:10)
[2023-02-01] MEDS ORDERED: magnesium citrate 296ml oral solution PO ONE (22:15)
[2023-02-01] MEDS ORDERED: lactulose 20gm/30ml cup PO PRN (22:15)
[2023-02-01 22:39] LABS: MAGNESIUM 2.2 MG/DL (1.5-2.4)
[2023-02-01] MEDS: ipratropium/albuterol 3ml nebule NEB PRN (22:39)
[2023-02-01 22:40] VITALS: PULSE 104; RESP 18; O2SAT 96
[2023-02-01 22:43] LABS: HEMOGLOBIN A1C 5.7 % (4.5-6.2)
[2023-02-01 22:47] VITALS: PULSE 100; RESP 18
[2023-02-01 23:13] LABS: APTT 26 SECONDS (22-32); INR 1.1 INR; PROTHROMBIN TIME 11.3 SECONDS (9.0-12.0)
[2023-02-02] VITALS (9 sets, daily range): BP systolic 118–145; BP diastolic 70–77; PULSE 65–93; RESP 16–22; TEMP 97.8–98.4; O2SAT 95–98
[2023-02-02 00:14] LABS: URINE AMPHETAMINE SCREEN POSITIVE (Neg); URINE BARBITUATE SCREEN NEGATIVE (Neg); URINE BENZODIAZEPINES SCREEN NEGATIVE (Neg); URINE CANNABINOID SCREEN POSITIVE (Neg); URINE COCAINE SCREEN NEGATIVE (Neg); URINE OPIATE SCREEN POSITIVE (Neg); URINE PHENCYCLIDINE SCREEN NEGATIVE (Neg)
[2023-02-02] MEDS ORDERED: ringers solution, lacted 1,000 ML IV ONE (00:25)
[2023-02-02 01:32] LABS: ALBUMIN 3.5 G/DL (3.4-5.0); ANION GAP 8 (8-16); BLOOD UREA NITROGEN 6 MG/DL (7-18); BUN/CREATININE RATIO 5.3 (10.0-20.0); CALCIUM 7.8 MG/DL (8.5-10.1); CHLORIDE 100 MMOL/L (99-107); CREATININE 1.14 MG/DL (0.60-1.10); GLUCOSE 109 MG/DL (70-104); POTASSIUM 3.4 MMOL/L (3.5-5.1); SODIUM 139 MMOL/L (135-145); TOTAL CARBON DIOXIDE 31.5 MMOL/L (24-32); eCRCL 78 ML/MIN; eGFR 71 ML/MIN
[2023-02-02 02:24] LABS: BASOPHILS # (AUTO) 0.1 X10'3 (0-0.2); BASOPHILS % (AUTO) 0.8 % (0-1); EOSINOPHILS # (AUTO) 0.4 X10'3 (0-0.9); EOSINOPHILS % (AUTO) 3.7 % (0-6); HEMATOCRIT 43.5 % (42.0-52.0); LYMPHOCYTES # (AUTO) 2.3 X10'3 (1.1-4.8); LYMPHOCYTES % (AUTO) 22.2 % (21-51); MEAN CORPUSCULAR HEMOGLOBIN 32.3 PG (27.0-31.0); MEAN CORPUSCULAR HGB CONC 34.4 g/dL (33.0-36.5); MEAN CORPUSCULAR VOLUME 93.8 FL (78-98); MEAN PLATELET VOLUME 9.4 FL (7.4-10.4); MONOCYTES # (AUTO) 0.7 X10'3 (0-0.9); MONOCYTES % (AUTO) 7.1 % (2-12); NEUTROPHILS # (AUTO) 6.9 X10'3 (1.8-7.7); NEUTROPHILS % (AUTO) 66.2 % (42-75); PLATELET COUNT 165 X10'3 (140-440); RED BLOOD COUNT 4.63 X10'6 (4.70-6.10); WHITE BLOOD COUNT 10.4 X10'3 (4.5-11.0)
[2023-02-02 02:41] LABS: ALANINE AMINOTRANSFERASE 123 U/L (12-78); ALBUMIN 3.3 G/DL (3.4-5.0); ALKALINE PHOSPHATASE 99 IU/L (46-116); ANION GAP 7 (8-16); ASPARTATE AMINO TRANSFERASE 91 U/L (10-37); BILIRUBIN,TOTAL 2.1 MG/DL (0.1-1.0); BLOOD UREA NITROGEN 6 MG/DL (7-18); BUN/CREATININE RATIO 5.3 (10.0-20.0); CALCIUM 7.8 MG/DL (8.5-10.1); CHLORIDE 102 MMOL/L (99-107); CHOL/HDL RATIO 5.3 (0.00-4.99); CHOLESTEROL 144 MG/DL (0-200); CREATININE 1.14 MG/DL (0.60-1.10); GLUCOSE 115 MG/DL (70-104); HDL CHOLESTEROL 27 MG/DL (35-60); LDL CHOLESTEROL 103 MG/DL (50-100); MAGNESIUM 1.8 MG/DL (1.5-2.4); POTASSIUM 3.4 MMOL/L (3.5-5.1); SODIUM 138 MMOL/L (135-145); TOTAL CARBON DIOXIDE 28.7 MMOL/L (24-32); TOTAL PROTEIN 6.6 G/DL (6.4-8.2); TRIGLYCERIDES 112 MG/DL (20-135); eCRCL 78 ML/MIN; eGFR 71 ML/MIN
[2023-02-02] MEDS: morphine 2 MG/ML inj. syringe IV PRN ×2 (03:35→20:00)
[2023-02-02] MEDS: nicotine 21mg patch - 24 hr TD SCH (07:09)
[2023-02-02] MEDS: heparin, porcine 5000 units/ml vial SQ SCH ×2 (07:10→20:02)
[2023-02-02] MEDS: pantoprazole 40MG/NS 100ML BAG 100 ML IV SCH (07:10)
[2023-02-02] MEDS: K and/or MAG REPLACEMENT MC SCH ×2 (08:00→20:16)
[2023-02-02] MEDS: docusate sod 100mg capsule PO SCH ×2 (08:00→20:00)
[2023-02-02] MEDS: POTASSIUM BICARB 20meq eff tab 20 MEQ TABLET.EFF PO SCH (08:00)
[2023-02-02] MEDS: ARIPIPRAZOLE 10 MG TABLET PO SCH (08:00)
[2023-02-02] MEDS: piperacillin/tazo 4.5gm/100ml 100 ML IV SCH ×2 (08:25→20:06)
[2023-02-02] MEDS ORDERED: SINCALIDE IV ONE (10:00)
[2023-02-02] MEDS ORDERED: NORMAL SALINE IV ONE (10:00)
[2023-02-02] MEDS: ondansetron/PF 4mg/2ml inj IV PRN ×2 (12:41→19:36)
[2023-02-02] MEDS: potassium Cl 20mEq in NS 1,000 ML IV SCH ×2 (15:21→19:41)
[2023-02-02] MEDS: ipratropium/albuterol 3ml nebule NEB PRN (15:52)
[2023-02-02] MEDS: polyethylene glycol 3350 17gm powd pack PO SCH (20:18)
[2023-02-03] VITALS (9 sets, daily range): BP systolic 103–141; BP diastolic 64–91; PULSE 59–80; RESP 16–23; TEMP 97.4–98.7; O2SAT 95–99
[2023-02-03] MEDS: potassium Cl 20mEq in NS 1,000 ML IV SCH ×3 (00:18→19:29)
[2023-02-03] MEDS: morphine 2 MG/ML inj. syringe IV PRN ×5 (02:08→19:25)
[2023-02-03] MEDS: ondansetron/PF 4mg/2ml inj IV PRN ×2 (06:25→12:49)
[2023-02-03 07:00] LABS: BASOPHILS % (AUTO) 0.3 % (0-1); EOSINOPHILS # (AUTO) 0.4 X10'3 (0-0.9); HEMATOCRIT 38.9 % (42.0-52.0); HEMOGLOBIN 13.2 g/dl (14.0-17.9); LYMPHOCYTES # (AUTO) 1.5 X10'3 (1.1-4.8); LYMPHOCYTES % (AUTO) 24.8 % (21-51); MEAN CORPUSCULAR HEMOGLOBIN 32.3 PG (27.0-31.0); MEAN CORPUSCULAR HGB CONC 34.1 g/dL (33.0-36.5); MEAN CORPUSCULAR VOLUME 94.9 FL (78-98); MEAN PLATELET VOLUME 9.9 FL (7.4-10.4); MONOCYTES # (AUTO) 0.3 X10'3 (0-0.9); MONOCYTES % (AUTO) 5.9 % (2-12); NEUTROPHILS # (AUTO) 3.7 X10'3 (1.8-7.7); PLATELET COUNT 142 X10'3 (140-440); RED CELL DISTRIBUTION WIDTH 14.5 % (11.5-14.5); WHITE BLOOD COUNT 5.9 X10'3 (4.5-11.0)
[2023-02-03 07:20] LABS: ALANINE AMINOTRANSFERASE 109 U/L (12-78); ALKALINE PHOSPHATASE 86 IU/L (46-116); ANION GAP 6 (8-16); ASPARTATE AMINO TRANSFERASE 68 U/L (10-37); BILIRUBIN,TOTAL 1.2 MG/DL (0.1-1.0); BLOOD UREA NITROGEN 7 MG/DL (7-18); BUN/CREATININE RATIO 8.1 (10.0-20.0); CALCIUM 7.3 MG/DL (8.5-10.1); CHLORIDE 106 MMOL/L (99-107); CREATININE 0.86 MG/DL (0.60-1.10); GLUCOSE 98 MG/DL (70-104); MAGNESIUM 2.1 MG/DL (1.5-2.4); POTASSIUM 3.8 MMOL/L (3.5-5.1); SODIUM 139 MMOL/L (135-145); TOTAL CARBON DIOXIDE 27.2 MMOL/L (24-32); eCRCL 103 ML/MIN; eGFR > 90 ML/MIN
[2023-02-03] MEDS: pantoprazole 40MG/NS 100ML BAG 100 ML IV SCH (07:22)
[2023-02-03] MEDS: nicotine 21mg patch - 24 hr TD SCH (07:24)
[2023-02-03] MEDS: ARIPIPRAZOLE 10 MG TABLET PO SCH (07:25)
[2023-02-03] MEDS: sertraline 50mg tablet PO SCH (07:28)
[2023-02-03] MEDS: docusate sod 100mg capsule PO SCH ×2 (07:28→19:25)
[2023-02-03] MEDS: heparin, porcine 5000 units/ml vial SQ SCH ×2 (07:30→19:26)
[2023-02-03] MEDS: K and/or MAG REPLACEMENT MC SCH ×2 (08:00→20:00)
[2023-02-03] MEDS: piperacillin/tazo 4.5gm/100ml 100 ML IV SCH ×2 (08:10→19:25)
[2023-02-03] MEDS ORDERED: LORazepam 2 mg/ml vial IV ONE (15:10)
[2023-02-03] MEDS ORDERED: guaiFENesin/DM 10ml UD oral syrup PO PRN (15:40)
[2023-02-03] MEDS: QUETIAPINE 50 MG TAB.SR.24H PO SCH (19:57)
[2023-02-03] MEDS: quetiapine fumarate ER 300mg tablet PO SCH (19:57)
[2023-02-03] MEDS: polyethylene glycol 3350 17gm powd pack PO SCH (21:00)
[2023-02-04] VITALS (12 sets, daily range): BP systolic 105–139; BP diastolic 51–99; PULSE 64–82; RESP 14–24; TEMP 97.8–98.2; O2SAT 95–100
[2023-02-04 07:20] LABS: BASOPHILS % (AUTO) 0.3 % (0-1); EOSINOPHILS # (AUTO) 0.2 X10'3 (0-0.9); EOSINOPHILS % (AUTO) 4.9 % (0-6); HEMOGLOBIN 13.4 g/dl (14.0-17.9); LYMPHOCYTES # (AUTO) 1.3 X10'3 (1.1-4.8); LYMPHOCYTES % (AUTO) 28.1 % (21-51); MEAN CORPUSCULAR HEMOGLOBIN 32.7 PG (27.0-31.0); MEAN CORPUSCULAR HGB CONC 34.4 g/dL (33.0-36.5); MEAN CORPUSCULAR VOLUME 95.1 FL (78-98); MEAN PLATELET VOLUME 9.6 FL (7.4-10.4); MONOCYTES # (AUTO) 0.4 X10'3 (0-0.9); MONOCYTES % (AUTO) 7.7 % (2-12); NEUTROPHILS # (AUTO) 2.7 X10'3 (1.8-7.7); PLATELET COUNT 142 X10'3 (140-440); RED CELL DISTRIBUTION WIDTH 14.4 % (11.5-14.5); WHITE BLOOD COUNT 4.6 X10'3 (4.5-11.0)
[2023-02-04 07:34] LABS: ALANINE AMINOTRANSFERASE 95 U/L (12-78); ALBUMIN 3.2 G/DL (3.4-5.0); ALKALINE PHOSPHATASE 84 IU/L (46-116); ANION GAP 9 (8-16); ASPARTATE AMINO TRANSFERASE 60 U/L (10-37); BILIRUBIN,TOTAL 1.1 MG/DL (0.1-1.0); BLOOD UREA NITROGEN 3 MG/DL (7-18); BUN/CREATININE RATIO 3.9 (10.0-20.0); CALCIUM 8.1 MG/DL (8.5-10.1); CHLORIDE 105 MMOL/L (99-107); CREATININE 0.76 MG/DL (0.60-1.10); GLUCOSE 103 MG/DL (70-104); SODIUM 136 MMOL/L (135-145); TOTAL CARBON DIOXIDE 21.9 MMOL/L (24-32); TOTAL PROTEIN 6.5 G/DL (6.4-8.2); eCRCL 117 ML/MIN; eGFR > 90 ML/MIN
[2023-02-04] MEDS: heparin, porcine 5000 units/ml vial SQ SCH ×2 (07:39→20:00)
[2023-02-04] MEDS: docusate sod 100mg capsule PO SCH ×2 (07:46→20:25)
[2023-02-04] MEDS: ARIPIPRAZOLE 10 MG TABLET PO SCH (07:46)
[2023-02-04] MEDS: nicotine 21mg patch - 24 hr TD SCH (07:46)
[2023-02-04] MEDS: sertraline 50mg tablet PO SCH (07:46)
[2023-02-04] MEDS: pantoprazole 40MG/NS 100ML BAG 100 ML IV SCH (07:46)
[2023-02-04] MEDS: K and/or MAG REPLACEMENT MC SCH ×2 (07:47→20:00)
[2023-02-04] MEDS: morphine 2 MG/ML inj. syringe IV PRN ×2 (07:47→12:42)
[2023-02-04] MEDS: piperacillin/tazo 4.5gm/100ml 100 ML IV SCH ×2 (08:11→20:26)
[2023-02-04] MEDS: potassium Cl 20mEq in NS 1,000 ML IV SCH ×2 (10:10→20:33)
[2023-02-04] MEDS: ondansetron/PF 4mg/2ml inj IV PRN (10:16)
[2023-02-04] MEDS ORDERED: fentaNYL/PF 50MCG/1 ML 2ML syringe ONE (15:57)
[2023-02-04] MEDS ORDERED: MIDAZolam 1 MG/ML 5ML VIAL ONE (15:58)
[2023-02-04] MEDS ORDERED: LIDOcaine Viscous 15ml cup ONE (15:58)
[2023-02-04] MEDS: HYDROcodone/acetaminophen 10/325mg tab PO PRN (17:36)
[2023-02-04] MEDS: polyethylene glycol 3350 17gm powd pack PO SCH (20:17)
[2023-02-04] MEDS: QUETIAPINE 50 MG TAB.SR.24H PO SCH (20:25)
[2023-02-04] MEDS: quetiapine fumarate ER 300mg tablet PO SCH (20:25)
[2023-02-05] MEDS: potassium Cl 20mEq in NS 1,000 ML IV SCH (05:56)
[2023-02-05 06:00] VITALS: BP 123/78; PULSE 82; RESP 15; TEMP 98.9; O2SAT 98
[2023-02-05] MEDS: HYDROcodone/acetaminophen 10/325mg tab PO PRN (07:14)
[2023-02-05 07:22] LABS: BASOPHILS % (AUTO) 0.4 % (0-1); EOSINOPHILS # (AUTO) 0.2 X10'3 (0-0.9); EOSINOPHILS % (AUTO) 3.5 % (0-6); HEMATOCRIT 42.3 % (42.0-52.0); HEMOGLOBIN 14.3 g/dl (14.0-17.9); LYMPHOCYTES # (AUTO) 1.2 X10'3 (1.1-4.8); LYMPHOCYTES % (AUTO) 22.2 % (21-51); MEAN CORPUSCULAR HEMOGLOBIN 32.3 PG (27.0-31.0); MEAN CORPUSCULAR HGB CONC 33.8 g/dL (33.0-36.5); MEAN CORPUSCULAR VOLUME 95.6 FL (78-98); MEAN PLATELET VOLUME 9.2 FL (7.4-10.4); MONOCYTES # (AUTO) 0.4 X10'3 (0-0.9); NEUTROPHILS # (AUTO) 3.6 X10'3 (1.8-7.7); NEUTROPHILS % (AUTO) 65.9 % (42-75); PLATELET COUNT 157 X10'3 (140-440); RED BLOOD COUNT 4.42 X10'6 (4.70-6.10); RED CELL DISTRIBUTION WIDTH 14.6 % (11.5-14.5); WHITE BLOOD COUNT 5.5 X10'3 (4.5-11.0)
[2023-02-05 07:44] LABS: ALANINE AMINOTRANSFERASE 94 U/L (12-78); ALBUMIN 3.4 G/DL (3.4-5.0); ALKALINE PHOSPHATASE 83 IU/L (46-116); ANION GAP 10 (8-16); ASPARTATE AMINO TRANSFERASE 57 U/L (10-37); BILIRUBIN,TOTAL 0.8 MG/DL (0.1-1.0); BLOOD UREA NITROGEN 3 MG/DL (7-18); BUN/CREATININE RATIO 4.2 (10.0-20.0); CALCIUM 8.5 MG/DL (8.5-10.1); CHLORIDE 104 MMOL/L (99-107); CREATININE 0.72 MG/DL (0.60-1.10); GLUCOSE 100 MG/DL (70-104); POTASSIUM 4.3 MMOL/L (3.5-5.1); SODIUM 135 MMOL/L (135-145); TOTAL CARBON DIOXIDE 20.8 MMOL/L (24-32); TOTAL PROTEIN 6.9 G/DL (6.4-8.2); eCRCL 123 ML/MIN; eGFR > 90 ML/MIN
[2023-02-05] MEDS: sertraline 50mg tablet PO SCH (07:55)
[2023-02-05] MEDS: ARIPIPRAZOLE 10 MG TABLET PO SCH (07:55)
[2023-02-05] MEDS: docusate sod 100mg capsule PO SCH (07:55)
[2023-02-05] MEDS: nicotine 21mg patch - 24 hr TD SCH (07:58)
[2023-02-05] MEDS: heparin, porcine 5000 units/ml vial SQ SCH (07:59)
[2023-02-05 08:00] VITALS: RESP 15; O2SAT 98
[2023-02-05] MEDS: pantoprazole 40MG/NS 100ML BAG 100 ML IV SCH (08:00)
[2023-02-05 08:03] VITALS: RESP 15; O2SAT 98
[2023-02-05] MEDS: piperacillin/tazo 4.5gm/100ml 100 ML IV SCH (08:53)
[2023-02-05 09:27] VITALS: PULSE 72; RESP 16; O2SAT 98
[2023-02-05 10:00] VITALS: BP 134/56; PULSE 68; RESP 18; TEMP 98.3; O2SAT 99
[2023-02-05] MEDS ORDERED: NICO-687 TD (10:10)
[2023-02-05] MEDS ORDERED: PANT40TA54 PO (10:10)
[2023-02-05] MEDS ORDERED: ACET-1008 PO (10:19)
== END 2023-02-05 11:00 | disposition home or self-care (01) | DRG 251 ==
LOC: ER 16:33 → ED HOLD 22:12 → ORTHO 4S 02-02 07:50
PROVIDERS: ADMIT Family Medicine; ATTEND Internal Medicine
PROC: 0DB68ZX Excision of Stomach, Via Natural or Artificial Opening Endoscopic, Diagnostic (ICD-10-PCS; principal; 2023-02-01)
PROC: CF1C1ZZ Planar Nuclear Medicine Imaging of Hepatobiliary System, All using Technetium 99m (Tc-99m) (ICD-10-PCS; 2023-02-01)
DX: R10.9 Unspecified abdominal pain (principal); K76.0 Fatty (change of) liver, not elsewhere classified; E66.9 Obesity, unspecified; E78.5 Hyperlipidemia, unspecified; E86.1 Hypovolemia; E87.6 Hypokalemia; F10.10 Alcohol abuse, uncomplicated; F15.129 Other stimulant abuse with intoxication, unspecified; F17.200 Nicotine dependence, unspecified, uncomplicated; Z68.29 Body mass index [BMI] 29.0-29.9, adult; F20.9 Schizophrenia, unspecified; F31.9 Bipolar disorder, unspecified; K59.09 Other constipation; K29.50 Unspecified chronic gastritis without bleeding
CPT/HCPCS: 36415; 43239; 71045; 74176; 74181; 76700; 78227; 80048; 80053; 80061; 80305; 81003; 83036; 83605; 83690; 83735; 83880; 84100; 84145; 84484; 85025; 85610; 85730; 87040; 94640; 94760; 99152; 99285; A4620; A9537; C9113; G0378; J1644; J2060; J2250; J2270; J2405; J2543; J2765; J2805; J3010; J3480; J3490; J7030; J7040; J7120

== ENCOUNTER 2024-06-21 14:44 | Emergency (ER) | payer MEDICAID ==
[~2024-06-21] VITALS: Ht 170.2 cm; Wt 95.5 kg
[~2024-06-21 14:44] MED LIST changes: -ARIP20TA21 PO; +ARIP20TA63 PO; -GABA-530 PO; -GUAI600T45 PO; -GUAN1TAB PO; -HYDR50CA5 PO; -IBUP-1986 PO; +NICO-687 TD; +PANT40TA54 PO; -PROP10TA10 PO; +QUET400T54 PO; +SERT-434 PO
[2024-06-21 15:05] VITALS: BP 130/98; PULSE 89; TEMP 98; O2SAT 98
[2024-06-21] MEDS ORDERED: ketorolac trometh 15mg/ml vial 15 MG/ML ML IM ONE (16:00)
[2024-06-21] MEDS ORDERED: CLIN-97 PO (16:08)
[2024-06-21] MEDS ORDERED: ACET1TAB96 PO (16:08)
[2024-06-21] MEDS: ondansetron 4mg rapidly disintigrating tab PO ONE (16:17)
[2024-06-21 16:19] VITALS: RESP 16
[2024-06-21] MEDS: ketorolac trometh 30MG/ML vial 30 MG/ML VIAL IM ONE (16:19)
== END 2024-06-21 16:23 | disposition home or self-care (01) ==
LOC: ER 14:45
DX: K04.7 Periapical abscess without sinus (principal); R11.10 Vomiting, unspecified; T36.0X5A Adverse effect of penicillins, initial encounter; T36.1X5A Adverse effect of cephalosporins and other beta-lactam antibiotics, initial encounter; F20.9 Schizophrenia, unspecified; F31.9 Bipolar disorder, unspecified; F12.90 Cannabis use, unspecified, uncomplicated; F15.90 Other stimulant use, unspecified, uncomplicated; F14.90 Cocaine use, unspecified, uncomplicated; J45.909 Unspecified asthma, uncomplicated; J44.9 Chronic obstructive pulmonary disease, unspecified; Z56.0 Unemployment, unspecified; Z98.890 Other specified postprocedural states; Z79.899 Other long term (current) drug therapy; Y92.89 Other specified places as the place of occurrence of the external cause
CPT/HCPCS: 96372; 99283; J1885

== ENCOUNTER 2024-09-20 09:48 | Emergency (ER) | payer MEDICAID ==
[~2024-09-20] VITALS: Ht 167.6 cm; Wt 74.9 kg
[~2024-09-20 09:48] MED LIST changes: +CLIN-97 PO
[2024-09-20 10:09] VITALS: BP 150/79; PULSE 53; RESP 15; O2SAT 95
--- NOTE | 2024-09-20 11:23 | Physician Documentation ---
HPI ~ General Chief Complaint: Tooth Problem Stated Complaint: TOOTH PAIN Time Seen by MD: 10:43 Primary Medical Doctor: none History of Present Illness HPI Comment 39-year-old male presents to the ED with a complaint of right-sided face and molar pain. Denies any fevers or nausea vomiting. HX of poor dentition Day of Onset: Sep 20, 2024 Medication Reconciliation Allergies: Coded Allergies: amoxicillin (Verified Allergy, Unknown, 09/20/24) Scheduled Aripiprazole (Aripiprazole), 1 TAB PO DAILY, (Reported) Clindamycin HCL* (Clindamycin HCL*), 1 CAP PO Q6H Clindamycin HCl (Cleocin HCl), 1 CAP PO Q8H Nicotine 21 MG Patch* (Habitrol 21 MG Patch*), 1 PATCH TD DAILY Pantoprazole Sodium (Pantoprazole Sodium), 40 MG PO DAILY Quetiapine Fumarate (Quetiapine Fumarate ER), 1 TAB PO HS, (Reported) Sertraline HCl (Sertraline HCl), 1 TAB PO DAILY, (Reported) Past Medical History Past Medical History: Asthma, COPD, Constipation, Pancreatitis, Bipolar, Schizophrenia Past Surgical History: orthopedic surgeries Patient History: Patient reports no known family medical history. Other Past Family History: NONCONTRIBUTORY Alcohol Use: Heavy Drug Use: marijuana, methamphetamine, cocaine, heroin Lives with: Mother Lives In: Home Occupation: unemployed Review of Systems All Other Systems at this time: Reviewed and Negative ROS As stated above in the HPI, otherwise all systems are reviewed and negative. Physical Exam Vital Signs: Temperature: 97.5, Source: Temporal, Heart Rate: 53, Respiratory Rate: 15, BP: 150/79, Pulse Oximetry: 95, Weight: 74.900 Physical Exam General: Alert, no apparent distress. Oral cavity: Caries throughout the oral cavity in the upper right molar region there is tissue swelling no obvious drainage Neurologic: Oriented x4. Psychiatric: Normal mood and affect. Skin: Normal color, warm and dry. No edema, no ecchymosis. Progress Results/Orders Results/Orders Completed Orders - WADE PETIT NP Clindamycin Capsule (Cleocin Capsule) (09/20/24 11:35) Medications Received in ER Medications (Trade) Dose Ordered Sig/Alessio Route PRN Reason Start Time Stop Time Status Last Admin Dose Admin (Cleocin capsule) 300 mg ONCE ONCE PO 09/20/24 11:35 09/20/24 11:36 DC 09/20/24 11:44 300 MG Vital Signs 09/20/24 09/20/24 10:09 11:46 Temp 97.5 97.5 Pulse 53 Resp 15 B/P (MAP) 150/79 Pulse Ox 95 Medical Decision Making Findings Going to treat patient empirically for a suspected soft tissue infection and has oral cavity and likely developing tooth abscess. Does not have any other obvious concerns over the environment emergent evaluation Differential Dx:Considerations: Include: Alveolar fracture, Alveolar osteitis, ANUG, Facial Cellulitis, Periapical abscess, Peridontal abscess, Post-extraction bleeding, Pulpitis, Tooth avulsion, Tooth eruption, Tooth Fracture, Trigeminal neuralgia, Tooth subluxation, Other Departure Disposition: HOME / SELF CARE / HOMELESS Impression: Primary Impression: Dental caries Additional Impression: Dental abscess Condition: Stable Discharge Instructions: Dental Caries, Adult Referrals: NO PRIMARY CARE PROVIDER (PCP) Prescriptions Clindamycin HCl (Cleocin HCl) 150 Mg Capsule 1 CAP PO Q8H for 10 Days, #30 CAP Prov: WADE PETIT NP 09/20/24 Education Educated: Patient Educated regarding: diagnosis Signature Scribe Signature: b Attestation: The note accurately reflects work and decisions made by me.Wade Sadler NP 09/20/24 17:46 WADE PETIT NP Sep 20, 2024 11:23
[2024-09-20] MEDS ORDERED: CLIN150C2 PO (11:26)
[2024-09-20] MEDS: clindamycin 150mg capsule PO ONE (11:44)
[2024-09-20 11:46] VITALS: TEMP 97.5
== END 2024-09-20 11:48 | disposition home or self-care (01) ==
LOC: ER 09:49
DX: K02.9 Dental caries, unspecified (principal); K04.7 Periapical abscess without sinus; F31.9 Bipolar disorder, unspecified; J44.9 Chronic obstructive pulmonary disease, unspecified; F20.9 Schizophrenia, unspecified; F15.90 Other stimulant use, unspecified, uncomplicated; F11.90 Opioid use, unspecified, uncomplicated; F14.90 Cocaine use, unspecified, uncomplicated; F12.90 Cannabis use, unspecified, uncomplicated; Z88.1 Allergy status to other antibiotic agents; Z79.899 Other long term (current) drug therapy; Z56.0 Unemployment, unspecified
CPT/HCPCS: 99283